=== PATIENT | male | born 1940 | race Caucasian/White ===

== ENCOUNTER 2020-03-21 10:16 | Inpatient (IN) | payer MEDICARE, BC ==
[~2020-03-21] VITALS: Ht 175.3 cm; Wt 73.5 kg
[2020-03-21] VITALS (303 sets, daily range): BP systolic 107–153; BP diastolic 63–97; PULSE 86–116; TEMP 97.8–98.2; O2SAT 78–100
[~2020-03-21 10:16] MED LIST: BONINE25 MG PO; FERATE27 MG PO; INDOCIN 25MG CA25 MG PO; NORMODYNE100 MG PO; OSTEO-BI-FLEX 21 TAB PO; PRESERVISION1 SGL PO; TYLENOL 325MG325 MG PO; ZESTRIL 20MG TA20 MG PO; ZITHROMAX Z PA250 MG PO
[2020-03-21 10:59] LABS: BASO # 0.1 (0.0-0.2); BASO % 0.7 % (0.0-2.0); EOS # 0.1 (0.0-0.7); EOS % 1.1 % (0-4.0); GRAN # 7.2 (1.4-6.5); GRAN % 77.5 % (42.2-75.2); HEMATOCRIT 41.4 % (42.0-52.0); HEMOGLOBIN 13.5 g/dl (13.5-18.0); LYMPH # 1.3 (1.2-3.4); LYMPH % 13.5 % (20.0-51.0); MEAN CELL VOLUME 91 fl (80.0-100.0); MEAN CORPUSCULAR HEMOGLOBIN 30 pg (27.0-31.0); MEAN CORPUSCULAR HGB CONC 33 g/dl (33.0-37.0); MEAN PLATELET VOLUME 10.7 fl (7.4-10.4); MONO # 0.6 (0.1-0.6); MONO % 6.9 % (1.7-9.3); PLATELET COUNT 214 K/mm3 (130-400); RED BLOOD COUNT 4.55 M/mm3 (4.20-5.60); REDCELL DISTRIBUTION WIDTH-CV 13.9 % (11.5-14.5)
[2020-03-21 11:02] LABS: INR 1.2 (0.8-3.0)
[2020-03-21 11:11] LABS: ALANINE AMINOTRANSFERASE 11 U/L (4-49); ALBUMIN 4.4 gm/dL (3.5-5.0); ALKALINE PHOSPHATASE 59 U/L (50-136); ANION GAP 11 mmol/L (7-16); AST,SGOT 16 U/L (15-37); BILIRUBIN,TOTAL 1.4 mg/dL (0.0-1.0); BLOOD UREA NITROGEN 16 mg/dL (9-20); C-REACTIVE PROTEIN 1.1 mg/dL (0.0-0.9); CALCIUM 9.7 mg/dL (8.4-10.2); CARBON DIOXIDE 21 mmol/L (22-30); CHLORIDE 105 mmol/L (98-107); CREATININE, serum 1.39 (0.66-1.25); GLUCOSE 100 mg/dL (74-106); LIPASE 205 U/L (23-300); POTASSIUM 3.8 mmol/L (3.4-5.0); SODIUM 137 mmol/L (137-145); TOTAL PROTEIN 7.6 gm/dL (6.4-8.2)
[2020-03-21 11:20] LABS: TROPONIN-I < 0.012 ng/mL (0.000-0.035)
--- NOTE | 2020-03-21 14:11 | NUR ---
Admission assessment completed, alert/oriented, he is hypetensive and tachycardic, A.fib on tele with rate 110-120, afebrile and denies feeling ill or being in contact with anyone who has been sick, lungs CTA/ no resp.difficulty, has 2+ edema to BLE/ reports this is baseline for him, has some redness/excoriation to his penis and scrotum that he reportss has been there for a long time, patients clothing was soiled and hygiene very poor upon arrival, he lives at home alone, meds/allergies/pharmacy reviewed with patient, Hospitalist DANNY inthe room to evaluate at this time
--- NOTE | 2020-03-21 14:25 | NUR ---
Camp Head Counselor met with the patient to complete initial intake. The patient lives alone in [place] about 4 to 5 miles out of town. The patient has a walker he uses in the home. The patient reports he sits on the side of his tub to wash himself. The patient's PCP is Dr. Madrigal and patient receives medications from [facility]. He is not currently on any medications. He states he takes an aspirin for pain once in a while. The patient does not have advanced directives in the EMR but has two sons, Bette # [phone] and # [phone], respectively. The patient was brought to the ED by his friend, Nicholas Alas # [phone] after a visit to his PCP. See HNP. The patient had bowel incontinence and has a sore on his penis. He informed the nurse that he had not go to his PCP about but was taking care of it at home with baby powder. The patient does not have a way to do his laundry states he does not remember when the last time he did his laundry. Per nurse that patient's pants "could stand up on their own" they were so dirty. CHERYL contacted the patient's friend, Nicholas. Nicholas states he transports the patient to his doctors appointments. Nicholas states the patient drives to his mail box (.5 miles) and the [place] (1.5 miles). CHERYL contacted the patient's sons to provide and update. CHERYL contacted Dr. Madrigal's office nurse, left message CHERYL made an APS. Intake # [id number]
--- NOTE | 2020-03-21 14:46 | NUR ---
Initial visit; Patient thanked Sanitation Worker Cleaning Machinery for looking in on him and offering spiritual care and letting him know Sanitation Worker Cleaning Machinery's are available to pray with him all day and 'on-call' over night. Sanitation Worker Cleaning Machinery offered God's blessings today and will follow up while Vinnie is a patient here with us.
--- NOTE | 2020-03-21 15:30 | NUR ---
The patient's son, Tony provided his cell phone # [phone] to this SW. Will continue to follow.
[2020-03-21 16:44] LABS: COLLECTION METHOD CLEAN CATCH
[2020-03-21 16:53] LABS: MUCOUS Present /lpf; PH 5 (5-8); SQUAMOUS EPITHELIAL None Seen /hpf; URINE APPEARANCE Clear; URINE BACTERIA None Seen /hpf; URINE BILIRUBIN Negative (NEGATIVE); URINE BLOOD 1+ (NEGATIVE); URINE COLOR Yellow; URINE GLUCOSE Negative (NEGATIVE); URINE KETONE 1+ (NEGATIVE); URINE LEUKOCYTE ESTERASE Negative (NEGATIVE); URINE NITRATE Negative (NEGATIVE); URINE PROTEIN(semi-quant) Negative (NEGATIVE); URINE RBC 0-2 /hpf; URINE UROBILINOGEN Negative (NEGATIVE)
--- NOTE | 2020-03-21 20:00 | NUR ---
Patient resting quietly in bed. Assisted with use of urinal. Patient denies any pain or discomfort; vitals within normal limits. Will continue to monitor.
[2020-03-22] VITALS (323 sets, daily range): BP systolic 106–145; BP diastolic 64–82; PULSE 18–97; TEMP 97.7–98.3; O2SAT 85–100
[2020-03-22 06:43] LABS: BASO # 0.1 (0.0-0.2); BASO % 0.8 % (0.0-2.0); EOS # 0.2 (0.0-0.7); EOS % 2.4 % (0-4.0); GRAN # 5.3 (1.4-6.5); GRAN % 67.8 % (42.2-75.2); HEMATOCRIT 37.5 % (42.0-52.0); HEMOGLOBIN 12.4 g/dl (13.5-18.0); LYMPH # 1.6 (1.2-3.4); LYMPH % 20.4 % (20.0-51.0); MEAN CELL VOLUME 91 fl (80.0-100.0); MEAN CORPUSCULAR HEMOGLOBIN 30 pg (27.0-31.0); MEAN CORPUSCULAR HGB CONC 33 g/dl (33.0-37.0); MEAN PLATELET VOLUME 11.4 fl (7.4-10.4); MONO # 0.6 (0.1-0.6); MONO % 8.2 % (1.7-9.3); PLATELET COUNT 191 K/mm3 (130-400); RED BLOOD COUNT 4.12 M/mm3 (4.20-5.60)
[2020-03-22 06:54] LABS: CALCIUM 8.7 mg/dL (8.4-10.2); CREATININE, serum 1.12 (0.66-1.25); POTASSIUM 3.4 mmol/L (3.4-5.0)
[2020-03-22 07:04] LABS: TROPONIN-I 0.013 ng/mL (0.000-0.035)
--- NOTE | 2020-03-22 07:40 | NUR ---
Report givent to BLANCA Brower.
--- NOTE | 2020-03-22 09:52 | NUR ---
The patient's son, Blayne left a message for Marketing Effectiveness Manager to get update. SW attempted to contact Blayne, left message.
--- NOTE | 2020-03-22 10:10 | NUR ---
Timeout completed Lias performing EBER with anesthesia. 1035 Cardioverted with one synced shock at [address] plan to [address] on sotalol after rate increases above 60 1145 update given to Lisa re: HR maintaining 60s in SR
--- NOTE | 2020-03-22 15:30 | NUR ---
Report called to Lei oilfield plant and field operator unit placed, pt and son notified of room number. Pt to room 312 via WC acc by pts son and RN belongings transported with patient to room.
--- NOTE | 2020-03-22 18:39 | NUR ---
Pt up from the ICU this afternoon, oriented to room, needs met.
--- NOTE | 2020-03-22 21:30 | NUR ---
Assessment completed. Pt resting in bed, denies pain or other needs at this time. Generalized dry flaky skin noted over entire body, most noticeable on bilateral feet. 1+ edema BLE. Pt alert and oriented to person, situation, time. Disoriented to place, stating he was "at [place]." Lung sounds clear, heart rate and rhythm regular, bowel sounds active all quadrants. IV to right AC intact, 1/2 NS running at 75 ml/hr. Neuro check completed, PERRLA, hand wood heel finisher weak but equal, follows commands.
[2020-03-23 03:42] VITALS: BP 145/72; PULSE 77; TEMP 97.7
--- NOTE | 2020-03-23 05:10 | NUR ---
Pt has uneventful shift. Asleep in room throughout night without complaint. Fluids running. Neuro assessments WNL and without change aside from generalized weakness.
[2020-03-23 07:09] LABS: BASO # 0.1 (0.0-0.2); EOS # 0.2 (0.0-0.7); GRAN # 4.9 (1.4-6.5); HEMOGLOBIN 11.6 g/dl (13.5-18.0); LYMPH # 1.4 (1.2-3.4); LYMPH % 19.2 % (20.0-51.0); MEAN CELL VOLUME 92 fl (80.0-100.0); MEAN CORPUSCULAR HEMOGLOBIN 29 pg (27.0-31.0); MEAN CORPUSCULAR HGB CONC 32 g/dl (33.0-37.0); MEAN PLATELET VOLUME 11.2 fl (7.4-10.4); MONO # 0.7 (0.1-0.6); MONO % 9.4 % (1.7-9.3); PLATELET COUNT 178 K/mm3 (130-400); RED BLOOD COUNT 3.94 M/mm3 (4.20-5.60); REDCELL DISTRIBUTION WIDTH-CV 14.1 % (11.5-14.5)
[2020-03-23 07:11] LABS: HEMATOCRIT 36.1 % (42.0-52.0)
[2020-03-23 07:31] LABS: CALCIUM 8.8 mg/dL (8.4-10.2); CREATININE, serum 1.03 (0.66-1.25); POTASSIUM 3.9 mmol/L (3.4-5.0)
[2020-03-23 08:05] VITALS: BP 153/83; PULSE 84; TEMP 98.3
--- NOTE | 2020-03-23 09:46 | NUR ---
Pt sleeping upon entry, easily awakened, no C/O pain at this time, shift assessments complete, left Pt call light in reach, bed in lowest position, alarm on.
[2020-03-23 11:57] VITALS: BP 139/70; PULSE 37; TEMP 98
--- NOTE | 2020-03-23 16:33 | NUR ---
Grain Processor met with the patient and his son, Blayne. The patient is agreeable to [facility]HS but not post acute rehab. Grain Processor presented the Medicare.gov's list of TRANSPORT DRIVER. [facility] out of [place] was chosen. CHERYL faxed referral to Pam with [facility]. CHERYL contacted Pam to inform her of the referral. Will continue to monitor.
[2020-03-23 17:15] VITALS: BP 159/73; PULSE 72; TEMP 97.9
--- NOTE | 2020-03-23 17:57 | NUR ---
Pt resting in the room, family in the room with Pt, Pt has had no C/O pain today. Pt is stronger than yesterday and is able to ambulate the hallway and use the restroom with standby assistance, no other issues noted. VS have remained stable, COVID swab taken this morning and sent to lab for processing.
--- NOTE | 2020-03-23 18:10 | NUR ---
Pt resting in the room today, has had C/O pain today and was administered pain medication for relief, Pt in good spirits and talkative. No other issues noted durin today. VS have remained stable.
[2020-03-23 19:40] VITALS: BP 141/80; PULSE 71; TEMP 97.8
--- NOTE | 2020-03-23 22:05 | NUR ---
Pt assessment completed and documented. Pt resting in bed at this time. Pt alert and oriented to person, time and situation. Pt disoriented to place stating he does not know what building he is in, but knows he is in [place]. IVF infusing per orders to left ac IV. Pt denies pain. Pt denies any other needs. Call light within reach. Bed alarm on. Will continue to monitor.
[2020-03-23 23:34] VITALS: BP 166/88; PULSE 74; TEMP 97.5
[2020-03-24 03:28] VITALS: BP 147/78; PULSE 68; TEMP 97.4
--- NOTE | 2020-03-24 05:42 | NUR ---
Pt rested well overnight. No complaints of pain. IVF infusing per orders to right AC IV. Pt denies any needs at this time. Fall precautions in place. Bed alarm on. Call light within reach.
[2020-03-24 05:58] LABS: BASO # 0.1 (0.0-0.2); BASO % 0.6 % (0.0-2.0); EOS # 0.3 (0.0-0.7); EOS % 3.2 % (0-4.0); GRAN # 5.5 (1.4-6.5); HEMOGLOBIN 12.1 g/dl (13.5-18.0); LYMPH # 1.2 (1.2-3.4); MEAN CELL VOLUME 92 fl (80.0-100.0); MEAN CORPUSCULAR HEMOGLOBIN 30 pg (27.0-31.0); MEAN CORPUSCULAR HGB CONC 33 g/dl (33.0-37.0); MEAN PLATELET VOLUME 11.1 fl (7.4-10.4); MONO # 0.7 (0.1-0.6); MONO % 8.8 % (1.7-9.3); PLATELET COUNT 198 K/mm3 (130-400); RED BLOOD COUNT 4.03 M/mm3 (4.20-5.60)
[2020-03-24 06:10] LABS: HEMATOCRIT 36.9 % (42.0-52.0)
[2020-03-24 06:18] LABS: CALCIUM 8.7 mg/dL (8.4-10.2); CREATININE, serum 1.02 (0.66-1.25); MAGNESIUM 1.9 mg/dL (1.6-2.3); POTASSIUM 3.8 mmol/L (3.4-5.0)
[2020-03-24 07:13] VITALS: BP 159/78; PULSE 75; TEMP 97.5
--- NOTE | 2020-03-24 09:55 | NUR ---
Pt awake and sitting in the recliner upon entry, no C/O pain at this time, assisted Pt to bed, shift assessments complete, left Pt call light in reach, bed in lowest position.
[2020-03-24 11:05] VITALS: BP 146/85; PULSE 78; TEMP 97.7
[2020-03-24] MEDS ORDERED: BETAPACE 80MG80 MG PO (13:42)
[2020-03-24] MEDS ORDERED: ELIQUIS 5MG PO (13:42)
[2020-03-24] MEDS ORDERED: TYLENOL 325MG325 MG PO (13:42)
[2020-03-24] MEDS ORDERED: CLOTRIMAZOLE ANTIF1% TP (13:43)
[2020-03-24 13:52] VITALS: BP 146/85; PULSE 78; TEMP 97.7
[2020-03-24] MEDS ORDERED: NORVASC 5MG5 MG/TAB PO (14:16)
--- NOTE | 2020-03-24 15:31 | NUR ---
SW approached by nurse to see if patient could be transfered to SNF due to Dr. bowling. SW met with patient and son to discuss transfer and both agreed for patient to transition to [facility] due to reviewing information provided by CHERYL previously and choosing [facility]. SW contacted [facility], sent referral information. [facility] support representative stated the doucmentation was reviewed and patient is approved to come to facility today 03/24/20 at 3pm. CHERYL notified nurse Lei, patient and son. Nothing further.
--- NOTE | 2020-03-24 15:35 | NUR ---
Pt transferred to [facility], Transported by [facility] transportation department, Report called to [facility] nursing.
== END 2020-03-24 15:39 | DRG 309 ==
LOC: COL.ER 10:16 → ICU 11:17 → MEDICAL 03-22 16:31
PROVIDERS: Emergency Medicine; Nurse Practitioner; Physician Assistant; ADMIT Internal Medicine
PROC: 5A2204Z Restoration of Cardiac Rhythm, Single (ICD-10-PCS; principal; 2020-03-22)
DX: I48.19 Other persistent atrial fibrillation (principal); E44.0 Moderate protein-calorie malnutrition; N17.9 Acute kidney failure, unspecified; I10 Essential (primary) hypertension; N48.1 Balanitis; E78.5 Hyperlipidemia, unspecified; Z87.891 Personal history of nicotine dependence; Z68.22 Body mass index [BMI] 22.0-22.9, adult
CPT/HCPCS: 99223-AI; 99231-AI; 99233-AI; 99239; J1650; J2704; J7030

== ENCOUNTER 2021-07-20 01:02 | Inpatient (IN) | payer MEDICARE, BC ==
[~2021-07-20] VITALS: Ht 180.3 cm; Wt 74.3 kg
[~2021-07-20 01:02] MED LIST changes: +BETAPACE 80MG80 MG PO; +CLOTRIMAZOLE ANTIF1% TP; +CORDARONE200 MG/TAB PO; +DEBROX OT; +ELIQUIS 5MG PO; +KLOR-CON SPRIN10 MEQ PO; +LASIX 40MG TABL40 MG PO; +NORVASC 5MG5 MG/TAB PO
[2021-07-20 02:52] LABS: BASO # 0.1 K/mm3 (0.0-0.2); BASO % 0.5 % (0.0-2.0); EOS # 0.1 K/mm3 (0.0-0.7); EOS % 0.5 % (0.0-4.0); GRAN # 7.9 K/mm3 (1.4-6.5); GRAN % 77.5 % (42.2-75.2); HEMOGLOBIN 10.8 g/dl (13.5-18.0); LYMPH # 1.2 K/mm3 (1.2-3.4); LYMPH % 11.4 % (20.0-51.0); MEAN CELL VOLUME 91 fl (80.0-100.0); MEAN CORPUSCULAR HEMOGLOBIN 31 pg (27-31); MEAN CORPUSCULAR HGB CONC 34 g/dl (33.0-37.0); MEAN PLATELET VOLUME 10.5 fl (7.4-10.4); MONO % 9.5 % (1.7-9.3); PLATELET COUNT 212 K/mm3 (130-400); RED BLOOD COUNT 3.51 M/mm3 (4.20-5.60)
[2021-07-20 03:02] LABS: INR 1.4 (0.8-3.0); PROTHROMBIN TIME 15.2 SECONDS (9.7-12.8)
[2021-07-20 03:09] LABS: ALBUMIN 3.9 gm/dL (3.4-4.8); BILIRUBIN,TOTAL 1.3 mg/dL (0.2-1.2); CALCIUM 9.9 mg/dL (8.4-10.2); CREATININE, serum 1.5 mg/dL (0.72-1.25); TOTAL PROTEIN 6.6 gm/dL (6.2-8.1)
--- NOTE | 2021-07-20 04:45 | NUR ---
PT ARRIVED AT 0415 BY CART. TRANSFERRED WITH SLIDE BOARD AND ASSIST OF 3. PT CONFUSED. ALERT TO NAME AND . CULP PLACED. PRN MORPHINE GIVEN FOR PAIN. CALL LIGHT WITHIN REACH. BED ALARM ON.
[2021-07-20] MEDS ORDERED: CORDARONE200 MG/TAB PO (05:00)
[2021-07-20] MEDS ORDERED: MIRALAX PA17 GM/Dose PO (05:05)
[2021-07-20] MEDS ORDERED: NORVASC 5MG5 MG/TAB PO (05:05)
[2021-07-20] MEDS ORDERED: ELIQUIS 2.5 PO (05:05)
[2021-07-20] MEDS ORDERED: ATHLETE'S FOOT1% TP (05:05)
[2021-07-20] MEDS ORDERED: B-12 500 MCG PO (05:06)
[2021-07-20 07:19] LABS: INR 1.4 (0.8-3.0); PROTHROMBIN TIME 15.2 SECONDS (9.7-12.8)
--- NOTE | 2021-07-20 07:24 | NUR ---
PT TAKING GOWN OFF, PULLED IV OUT, AND PULLING AT CULP. REORIEINTED, IV RESTARTED IN RIGHT FOREARM. PT WAS GOING TO BE MOVED CLOSER TO DESK, BUT FELL ASLEEP. PASSED THIS INFORMATION TO EBONY RIOS.
--- NOTE | 2021-07-20 07:47 | NUR ---
BEDSIDE PEPORT RECIEVED FROM NIYA RIOS PT CURRENTLY RESTING BED BEDALARM IN PLACE. CALL LIGHT WITHIN [facility]
[2021-07-20 07:55] VITALS: BP 152/58; PULSE 72; TEMP 98.3
[2021-07-20 08:21] LABS: BASO % 0.3 % (0.0-2.0); GRAN # 11.3 K/mm3 (1.4-6.5); GRAN % 83.5 % (42.2-75.2); HEMOGLOBIN 11.7 g/dl (13.5-18.0); LYMPH # 0.9 K/mm3 (1.2-3.4); LYMPH % 6.7 % (20.0-51.0); MEAN CELL VOLUME 92 fl (80.0-100.0); MEAN CORPUSCULAR HEMOGLOBIN 32 pg (27-31); MEAN CORPUSCULAR HGB CONC 35 g/dl (33.0-37.0); MEAN PLATELET VOLUME 11.4 fl (7.4-10.4); MONO # 1.2 K/mm3 (0.1-0.6); MONO % 9.1 % (1.7-9.3); PLATELET COUNT 220 K/mm3 (130-400); RED BLOOD COUNT 3.69 M/mm3 (4.20-5.60); REDCELL DISTRIBUTION WIDTH-CV 13.7 % (11.5-14.5)
[2021-07-20 08:23] LABS: HEMATOCRIT 33.9 % (42.0-52.0)
[2021-07-20 11:43] VITALS: BP 135/57; PULSE 71; TEMP 98.3
--- NOTE | 2021-07-20 14:15 | NUR ---
Attempted to meet with patient and was unsuccessful.
[2021-07-20 16:21] VITALS: BP 178/51; PULSE 76; TEMP 97.9
[2021-07-20 19:41] VITALS: BP 153/56; PULSE 75; TEMP 99.9
[2021-07-21] VITALS (7 sets, daily range): BP systolic 139–157; BP diastolic 53–65; PULSE 65–88; TEMP 97.2–99.3
--- NOTE | 2021-07-21 04:44 | NUR ---
PT SLEEPING IN BED @ THIS TIME. PT HAS CONTINUED TO BE INTERMITTENTLY CONFUSED TO TIME ET PLACE THROUGHOUT NIGHT, SPEECH IS SOMETIMES DIFFICULT TO UNDERSTAND ET PT IS [place]. PT HAS HAD SOME PAIN BUT MOSTLY SLEPT, GROANS WHEN BEING REPOSITIONED IN BED, HAS BEEN OFFERED DRINKS OF WATER WHEN AWAKE. PT HAD STATED THAT HE WAS NAUSEOUS FOR A BRIEF TIME ET THEN WENT BACK TO SLEEP. ICE PACK WAS PLACED ON RIGHT HIP. SCDs ON BILATERAL LEGS. IVF INFUSING. CULP CATHETER DRAINING DEPENDENTLY. BED ALARM ON, CALL LIGHT WITHIN REACH.
[2021-07-21 07:57] LABS: INR 1.3 (0.8-3.0); PROTHROMBIN TIME 14.2 SECONDS (9.7-12.8)
[2021-07-21 08:03] LABS: CALCIUM 8.6 mg/dL (8.4-10.2); CREATININE, serum 1.28 mg/dL (0.72-1.25); POTASSIUM 3.8 mmol/L (3.5-4.5)
[2021-07-21 08:49] LABS: BASO % 0.2 % (0.0-2.0); EOS % 0.2 % (0.0-4.0); GRAN % 78.3 % (42.2-75.2); HEMATOCRIT 28.6 % (42.0-52.0); LYMPH % 9.5 % (20.0-51.0); MEAN CELL VOLUME 94 fl (80.0-100.0); MEAN CORPUSCULAR HEMOGLOBIN 32 pg (27-31); MEAN CORPUSCULAR HGB CONC 34 g/dl (33.0-37.0); MEAN PLATELET VOLUME 11.2 fl (7.4-10.4); MONO # 1.2 K/mm3 (0.1-0.6); MONO % 11.5 % (1.7-9.3); PLATELET COUNT 167 K/mm3 (130-400); RED BLOOD COUNT 3.04 M/mm3 (4.20-5.60); REDCELL DISTRIBUTION WIDTH-CV 14.3 % (11.5-14.5)
[2021-07-21 08:51] LABS: HEMOGLOBIN 9.6 g/dl (13.5-18.0)
--- NOTE | 2021-07-21 10:30 | NUR ---
Patient alert with occasional confusion noted. See assessment. RLE shortened and externally rotated, pillow between legs for support. Pulses palpable to BLE. RLE with no numbness or tingling. +1 edema to RLE. ADILSON hose placed to LLE, SCDs placed bilaterally. Fuller catheter in place, patent, draining clear yellow urine. NWB to RLE, bedrest. No c/o at this time.
[2021-07-22] VITALS (13 sets, daily range): BP systolic 102–165; BP diastolic 53–81; PULSE 73–127; TEMP 97.5–99.6
--- NOTE | 2021-07-22 02:12 | NUR ---
PT SLEEPING IN BED. RESPIRATIONS UNLABORED. BED ALARM ON. CALL LIGHT WITHIN REACH. PT HAS BEEN ASLEEP FOR MOST OF NIGHT, HAS CALLED OUT X1 TO STATE HELP ET THAT HE NEEDED TO USE THE BR. PT RE-ORIENTED TO SITUATION ET CULP CATHETER. PT VERBALIZED UNDERSTANDING ET HAS BEEN QUIET SINCE. PT DENIES PAIN WHEN ASKED. CULP CATHETER IN PLACE DRAINING CLEAR YELLOW. IVF INFUSING. PT IS NOW NPO BUT PREVIOUSLY HAD SLEPT THROUGH DINNER ALSO ET HAS NOT EATEN.
--- NOTE | 2021-07-22 06:37 | NUR ---
MULTIPLE ATTEMPTS MADE TO CALL ET CONTACT PT'S SON FOR SURGICAL CONSENT WITH NO ANSWER, VOICE MESSAGE LEFT.
--- NOTE | 2021-07-22 07:19 | NUR ---
Patient to surgery with surgical staff at this time. Verbal consent given by patient with two witnesses. Fuller catheter care, partial bath and linen change completed prior to leaving unit.
--- NOTE | 2021-07-22 09:40 | NUR ---
Patient returns post op at 0925. Post op checks initiated. Assessment unchanged except incisions x3 to right hip CDI, pulses palpable to RLE. No c/o at this time
[2021-07-22 12:06] LABS: BASO % 0.2 % (0.0-2.0); EOS % 0.2 % (0.0-4.0); GRAN # 10.2 K/mm3 (1.4-6.5); GRAN % 87.8 % (42.2-75.2); LYMPH # 0.4 K/mm3 (1.2-3.4); LYMPH % 3.5 % (20.0-51.0); MEAN CELL VOLUME 94 fl (80.0-100.0); MEAN CORPUSCULAR HGB CONC 34 g/dl (33.0-37.0); MEAN PLATELET VOLUME 10.3 fl (7.4-10.4); MONO # 0.9 K/mm3 (0.1-0.6); MONO % 7.5 % (1.7-9.3); PLATELET COUNT 149 K/mm3 (130-400); RED BLOOD COUNT 3.03 M/mm3 (4.20-5.60)
[2021-07-22 12:17] LABS: CALCIUM 8.4 mg/dL (8.4-10.2); CREATININE, serum 1.09 mg/dL (0.72-1.25); POTASSIUM 3.8 mmol/L (3.5-4.5)
[2021-07-22 12:18] LABS: HEMATOCRIT 28.4 % (42.0-52.0); HEMOGLOBIN 9.5 g/dl (13.5-18.0); MEAN CORPUSCULAR HEMOGLOBIN 31 pg (27-31)
--- NOTE | 2021-07-22 15:36 | NUR ---
Rhythm changed from Sinus rate 70s to AVIB RVR rate 134. Nurse Notified.
--- NOTE | 2021-07-22 16:02 | NUR ---
Rhythm change. Sinus Rhytm rate 70s to AFIB RVR 130S
--- NOTE | 2021-07-22 16:14 | NUR ---
Due to patient's mental status and just getting back from surgery, phone call was made to the patient's son Tony. Eliazar reports that the patient has been living at [facility] in [place]. States he is mostly independent with his activities of daily living but that his father does get some help with showering. Reports that the patient utilizes a walker to assist with ambulation. States he has no oxygen needs. PCP is Dr. Madrigal and he utilizes [facility] for perscriptions with no cost difficulty. Son reports that he is pretty sure his father hasa DPOA-HC established and that he is listed as the agent. Spoke at length about his father needing SNF care post discharge. Talked about the options in facilities to which [facility] would be the first choice and [facility] as a second choice. Tony would like for his father to stay in the [facility]. Informed Tony that his father would be here for 3 midnights before a transfer and spoke about the visting policies at each facility. Referral faxed to Gena at [facility] SNF. Discharge plan: SNF- 1.[facility] 2.[facility]
--- NOTE | 2021-07-22 16:24 | NUR ---
Received phone call from tele monitor approx 1605 that patient converted into A-fib approx 1536. MORGAN Ferguson notified. Heart rate 90s at this time.
--- NOTE | 2021-07-22 16:25 | NUR ---
Patient having difficulty swallowing thin liquids at this time. Medications given in small amount of applesauce, able to swallow these. Patient had incontinent bowel movement, cleaned. Pain medication given.
[2021-07-23 04:28] VITALS: BP 150/61; PULSE 87; TEMP 98.1
[2021-07-23 06:59] LABS: BASO % 0.2 % (0.0-2.0); EOS % 0.1 % (0.0-4.0); GRAN # 8.1 K/mm3 (1.4-6.5); GRAN % 84.7 % (42.2-75.2); LYMPH # 0.5 K/mm3 (1.2-3.4); LYMPH % 4.7 % (20.0-51.0); MEAN CELL VOLUME 94 fl (80.0-100.0); MEAN CORPUSCULAR HGB CONC 33 g/dl (33.0-37.0); MEAN PLATELET VOLUME 11.1 fl (7.4-10.4); MONO # 0.9 K/mm3 (0.1-0.6); MONO % 9.9 % (1.7-9.3); PLATELET COUNT 146 K/mm3 (130-400); REDCELL DISTRIBUTION WIDTH-CV 13.9 % (11.5-14.5)
[2021-07-23 07:13] LABS: HEMATOCRIT 25.5 % (42.0-52.0); HEMOGLOBIN 8.5 g/dl (13.5-18.0); MEAN CORPUSCULAR HEMOGLOBIN 31 pg (27-31)
[2021-07-23 07:21] LABS: CALCIUM 8.2 mg/dL (8.4-10.2); CREATININE, serum 1.24 mg/dL (0.72-1.25); POTASSIUM 3.5 mmol/L (3.5-4.5)
--- NOTE | 2021-07-23 07:28 | NUR ---
pain controlled with morphine x3 this shift, pt placed on 2L O2 @0425 for sats <90%, IVF infusing per piv @75 cc/hr, po meds held this shift d/t difficulty swallowing, mouth swabs used to help with dry mouth and oral care. speech consult ordered this am.
--- NOTE | 2021-07-23 07:30 | NUR ---
CLOTH PIECER REPORTED THEY WERE UNABLE TO GIVE ORAL MEDS SAFELY PATIENT SEEMED TO COUGH A LOT WITH ORAL INTAKE. BREAKFAST TRAY AT BEDSIDE AND PCT REPORTING THE SAME ISSUE. ST CONSULTED. NURSING WAS ABLE TO CRUSH AM MEDS AND GIVE THEM IN APPLESAUCE WITH HOB AT NEARLY 90 DEGREES. PATIENT TOLERATED MEDS THIS WAY WITHOUT ANY ISSUES. HOWEVER, PATIENT WAS STILL COUGHIN WITH LIQUIDS AND SOFT BREAKFAST ITEMS. PATIENT NPO TILL SEEN BY .
[2021-07-23 08:00] VITALS: BP 158/53; PULSE 68; TEMP 98.2
--- NOTE | 2021-07-23 08:00 | NUR ---
PATIENT IS ANSWERING PT/OT QUESTIONS APPROPRIATELY AND SEEMS ORIENTED. PATIENT IS OCCATIONALLY DROWSY. WHEN ASSISTED TO DO ANY ACTIVITY PATIENT SCREAMS OUT IN PAIN. GAVE PRN PAIN MED WITH CRUSHED PILLS AND PATIENT TOLERATED WELL. PATIENT WAS 2 MAX ASSIST TO BEDSIDE CHAIR AND DID NOT FOLLOW VERBAL QUES WELL. RIGHT HIP DRESSINGS ARE CD&I WITH GAUZE. TEDS TO BLE. SCD'S CURRENTLY OFF. POSITIVE PEDAL PULSES TO BLE. CULP TO DD WITH MOD AMOUNTS OF CLEAR YELLOW URINE NOTED. IV FLUIDS INFUSING VIA PUMP INTO RIGHT FORARM IV PER ORDERS. VSS WITH TELE INPLACE. HEAD TO TOE ASSESSMENT COMPLETE. DNR STATUS. NO OTHER NEEDS AT THIS TIME. FALL RISK PRECAUTIONS INPLACE. CALL LIGHT IN REACH.
--- NOTE | 2021-07-23 11:00 | NUR ---
ST AT BEDSIDE TO EVAL & TREAT. PATIENT UNABLE TO PROPERLY FOLLOW DIRECTION, ST RECOMMENDING NPO
--- NOTE | 2021-07-23 11:33 | NUR ---
CHERYL contacted and faxed updates to Gena at [facility]. Awaiting screen.
[2021-07-23 12:00] VITALS: BP 155/78; PULSE 111; TEMP 97.9
--- NOTE | 2021-07-23 14:37 | NUR ---
Gena, at [facility], reports that they would like to see how the patient does with ST. Awaiting ST eval. Gena also inquired about a DPOA-HC. CHERYL contacted and updated Jory TREVINO of the patient's plan. The carding doubler reports that they do have the patient's DPOA-HC and faxed it to the surgical unit. CHERYL received the document and placed it in the patient's chart. The patient's DPOA-HC is his son, Tony.
--- NOTE | 2021-07-23 14:45 | NUR ---
PATIENT SLEEPING SOUNDLY, NO NEEDS.
[2021-07-23 16:00] VITALS: BP 142/96; PULSE 104; TEMP 97.9
[2021-07-23 20:01] VITALS: BP 147/59; PULSE 77; TEMP 98.5
[2021-07-24] VITALS (7 sets, daily range): BP systolic 119–153; BP diastolic 48–75; PULSE 65–101; TEMP 97.8–98.4
[2021-07-24 06:10] LABS: BASO % 0.4 % (0.0-2.0); EOS # 0.3 K/mm3 (0.0-0.7); EOS % 3.2 % (0.0-4.0); GRAN % 76.4 % (42.2-75.2); LYMPH # 0.8 K/mm3 (1.2-3.4); LYMPH % 10.2 % (20.0-51.0); MEAN CELL VOLUME 92 fl (80.0-100.0); MEAN CORPUSCULAR HGB CONC 34 g/dl (33.0-37.0); MEAN PLATELET VOLUME 10.6 fl (7.4-10.4); MONO # 0.7 K/mm3 (0.1-0.6); MONO % 9.2 % (1.7-9.3); PLATELET COUNT 172 K/mm3 (130-400); RED BLOOD COUNT 2.56 M/mm3 (4.20-5.60); REDCELL DISTRIBUTION WIDTH-CV 13.7 % (11.5-14.5)
[2021-07-24 06:11] LABS: CALCIUM 8.3 mg/dL (8.4-10.2); CREATININE, serum 1.13 mg/dL (0.72-1.25); POTASSIUM 3.5 mmol/L (3.5-4.5)
--- NOTE | 2021-07-24 06:16 | NUR ---
Patient crying out in pain this am, ice pack in place, medicated per MAR for pain, reoriented to situation and place and time, updated family on patient condition, telemetry in use, call plasencia w/i reach, mayen draining per gravity, no acute distress noted.
[2021-07-24 06:24] LABS: HEMATOCRIT 23.5 % (42.0-52.0); MEAN CORPUSCULAR HEMOGLOBIN 31 pg (27-31)
--- NOTE | 2021-07-24 08:00 | NUR ---
PATIENT IS ANSWERING QUESTIONS APPROPRIATELY, ORIENTED X2. PATIENT IS OCCATIONALLY DROWSY & FORGETFUL. PATIENT C/O PAIN IN RLE. GAVE PRN PAIN MEDS WITH AM PILLS, CRUSHED IN APPLESAUCE AND TOLERATED WELL. WHEN ASSISTED TO DO ANY ACTIVITY PATIENT IS A 2 MAX ASSIST TO BEDSIDE CHAIR AND DOES NOT FOLLOW VERBAL QUES WELL. RIGHT HIP DRESSINGS ARE CD&I WITH GAUZE. TEDS TO BLE. SCD'S CURRENTLY OFF. POSITIVE PEDAL PULSES TO BLE. CULP TO DD WITH MOD AMOUNTS OF CLEAR YELLOW URINE NOTED. IV FLUIDS INFUSING VIA PUMP INTO RIGHT FORARM IV PER ORDERS. VSS WITH TELE INPLACE. HEAD TO TOE ASSESSMENT COMPLETE. DNR STATUS. NO OTHER NEEDS AT THIS TIME. FALL RISK PRECAUTIONS INPLACE. CALL LIGHT IN REACH.
--- NOTE | 2021-07-24 10:11 | NUR ---
Gena, at [facility], reports that they are good to accept the patient. SW to fax updates to [facility] and will continue to follow.
--- NOTE | 2021-07-24 15:14 | NUR ---
ST reassessed the patient today and recommend a pureed diet and nectar thick liquids. CHERYL notified Gena at [facility]. Gena reports that since the patient has been NPO until ST reassessed, they would like to see how the patient does on the new diet. Possible dc tomorrow. CHERYL updated the PA.
--- NOTE | 2021-07-24 16:10 | NUR ---
PATIENT IS UNABLE TO VOID AFTER HAVING CULP DC'D. BLADDER SCAN ONLY SHOWED 135CC. PATIENT DENIES URGE TO VOID. BRIEF INPLACE. WILL CONTINUE TO MONITOR.
--- NOTE | 2021-07-24 20:00 | NUR ---
PT REPEATEDLY YELLS OUT FOR HELP. WHEN PT IS ASKED WHAT HE NEEDS, PT STATES THAT HE NEEDS TO GO TO THE BR. SMALL AMOUNT OF URINE NOTED ON PT'S GOWN. LINENS ET BRIEF UNDERNEATH PT ARE DRY. PT ASSISTED TO USE URINAL ET VOIDS VERY SMALL AMOUNT. PT THEN REPEATEDLY STATES TO HELP HIM ET THAT HE NEEDS MONEY, REMOVES TELEMETRY PATCHES FROM CHEST. PT IS CONFUSED TO PLACE ET SITUATION. PT STATES THAT THE YEAR IS 1939 WHEN ASKED. ATTEMPTS MADE TO RE-ORIENT PT WITH NO SUCCESS. TELEMETRY PATCHES REPLACED, IVF INFUSING INTO RIGHT FOREARM. RESPIRATIONS UNLABORED ON 1L O2. BED ALARM ON. CALL LIGHT WITHIN REACH.
--- NOTE | 2021-07-24 20:30 | NUR ---
PT CONTINUES TO YELL OUT, ASKING FOR SOMEONE TO GIVE HIM SOME MONEY, THEN STATES THAT HE NEEDS TO USE THE BR. PT ASSISTED TO USE URINAL, VOIDS 125 ML KATI URINE. PT ASSISTED TO DRINK THICKENED FLUIDS WITH HOB ELEVATED TO SITTING POSITION, MEDICATIONS GIVEN CRUSHED IN PUDDING. PT IS NOTED TO OCCASIONALLY COUGH WITH INTAKE.
[2021-07-25] VITALS (7 sets, daily range): BP systolic 115–159; BP diastolic 38–66; PULSE 74–102; TEMP 97.9–99.2
[2021-07-25 06:24] LABS: BASO % 0.2 % (0.0-2.0); EOS # 0.2 K/mm3 (0.0-0.7); EOS % 2.2 % (0.0-4.0); GRAN # 6.7 K/mm3 (1.4-6.5); GRAN % 81.4 % (42.2-75.2); LYMPH # 0.8 K/mm3 (1.2-3.4); LYMPH % 10.1 % (20.0-51.0); MEAN CELL VOLUME 91 fl (80.0-100.0); MEAN CORPUSCULAR HGB CONC 34 g/dl (33.0-37.0); MEAN PLATELET VOLUME 10.2 fl (7.4-10.4); MONO # 0.5 K/mm3 (0.1-0.6); MONO % 5.6 % (1.7-9.3); PLATELET COUNT 197 K/mm3 (130-400); RED BLOOD COUNT 2.54 M/mm3 (4.20-5.60); REDCELL DISTRIBUTION WIDTH-CV 13.5 % (11.5-14.5)
--- NOTE | 2021-07-25 06:27 | NUR ---
PT REPEATEDLY STATES HELP ME ET THAT HE NEEDS TO USE THE BR. PT IS BLADDER SCANNED, RESULTS ARE 261 ML. PT IS ASSISTED TO USE URINAL, VOIDS 50 ML DARK KATI CLOUDY URINE. SRINATH DELGADO CALLED ET NOTIFIED OF PT'S LACK OF OUTPUT ET URGE TO URINATE. NEW ORDER RECEIVED. PT IS STRAIGHT CATHED X1 USING STERILE TECHNIQUE, PCT KENNY ASSISTING IN ROOM, PANCHO CARE COMPLETED BEFORE ET AFTER PROCEDURE. PT HAS 250 ML DARK KATI CLOUDY URINE OUT WITH SOME SEDIMENT. SRINATH DELGADO NOTIFIED. IVF RATE OF INFUSION INCREASED TO 150 ML/HR @ THIS TIME. PT RESTING QUIETLY IN BED WHEN UNDISTURBED. RESPIRATIONS UNLABORED. BED ALARM ON. CALL LIGHT WITHIN REACH.
[2021-07-25 06:34] LABS: HEMOGLOBIN 7.9 g/dl (13.5-18.0); MEAN CORPUSCULAR HEMOGLOBIN 31 pg (27-31)
[2021-07-25 06:37] LABS: CALCIUM 8.4 mg/dL (8.4-10.2); CREATININE, serum 1.08 mg/dL (0.72-1.25); POTASSIUM 3.6 mmol/L (3.5-4.5)
--- NOTE | 2021-07-25 07:15 | NUR ---
BEDSIDE REPORT RECEIVED FROM LEATHA RIOS PT ANETA SLEEPING IVF INFUISING. CALL LIGHT WITHIN REACH.
--- NOTE | 2021-07-25 14:10 | NUR ---
CHERYL faxed updates to Gena at [facility]. The patient received increased IV fluids this morning. Gena reports that they would want the patient stable off of the IV fluids and for the patient to have better pain control. If the patient is doing better tomorrow and stable off the IV fluids, then they can look at taking him. CHERYL notified the clinical team. CHERYL contacted and updated the patient's son, Tony. Tony is in agreement to the plan. CHERYL read the IM form outloud to Tony over the phone. Tony verbalized understanding and gave SW approval to sign the form on his behalf. *Discharge plan [facility]*
--- NOTE | 2021-07-25 22:00 | NUR ---
PT'S SON MAKSIM CALLS ET IS UPDATED ON PT CONDITION. PT'S SON STATES THAT HE WOULD LIKE PT'S VITAMIN B12 LEVELS CHECKED ET THAT HE BELIEVES A SUPPLEMENT MAY HELP PT. THIS NURSE TELLS MAKSIM THAT INFORMATION WILL BE PASSED ON TO PROVIDER ET DAY SHIFT.
[2021-07-26] VITALS (7 sets, daily range): BP systolic 104–151; BP diastolic 47–78; PULSE 66–110; TEMP 97.7–98.3
--- NOTE | 2021-07-26 01:57 | NUR ---
FARM ASSISTANT REPORTS THAT PT HAS CONVERTED INTO SINUS RHYTHM @ THIS TIME.
--- NOTE | 2021-07-26 06:36 | NUR ---
LAB ASSISTED TO DRAW BLOOD. PT IS DROWSY ET APPEARS PALE, IS COOPERATIVE WITH LAB DRAW. PT IS COUGHING A MOIST COUGH INTERMITTENTLY. NO SPUTUM SEEN. PT REFUSES ORAL CARE. RESPIRATIONS UNLABORED. BED ALARM ON. CALL LIGHT WITHIN REACH.
--- NOTE | 2021-07-26 07:10 | NUR ---
REPORT RECEIVED FROM LEATHA RIOS , PT RESTING IN BED MOURNS AT TIMES. CULP IN PLACE WITH MINIMUM OUTPUT. BED ALARM IN PLACE
[2021-07-26 07:18] LABS: BASO % 0.4 % (0.0-2.0); EOS # 0.2 K/mm3 (0.0-0.7); EOS % 2.9 % (0.0-4.0); GRAN # 5.8 K/mm3 (1.4-6.5); GRAN % 74.3 % (42.2-75.2); LYMPH # 1.2 K/mm3 (1.2-3.4); LYMPH % 14.6 % (20.0-51.0); MEAN CELL VOLUME 93 fl (80.0-100.0); MEAN CORPUSCULAR HGB CONC 33 g/dl (33.0-37.0); MEAN PLATELET VOLUME 10.2 fl (7.4-10.4); MONO # 0.6 K/mm3 (0.1-0.6); PLATELET COUNT 216 K/mm3 (130-400); RED BLOOD COUNT 2.33 M/mm3 (4.20-5.60); REDCELL DISTRIBUTION WIDTH-CV 13.8 % (11.5-14.5)
[2021-07-26 07:24] LABS: HEMATOCRIT 21.6 % (42.0-52.0); HEMOGLOBIN 7.2 g/dl (13.5-18.0); MEAN CORPUSCULAR HEMOGLOBIN 31 pg (27-31)
[2021-07-26 07:37] LABS: CALCIUM 8.3 mg/dL (8.4-10.2); CREATININE, serum 0.99 mg/dL (0.72-1.25); POTASSIUM 3.6 mmol/L (3.5-4.5)
--- NOTE | 2021-07-26 11:03 | NUR ---
CHERYL spoke with Tremayne this morning who requests clinical updates on the patient for a possible dc todya. Updates faxed to Tremayne and johan swab requested.
--- NOTE | 2021-07-26 11:30 | NUR ---
Tremayne from [facility] states that they are unable to take the patient today due to his "hemoglobin and IV fluids". House notifed.
--- NOTE | 2021-07-26 18:45 | NUR ---
PT REMAIN CONFUSED AT TIMES ASSISTED PT TO CHAIR WITH SIT AND STAND SIT. PT HAD A LARGE BM. CULP REMAIN INTACK. MINIMUN INTAKE NOTED. SON AND DAUGHTER CALLED, UPDATED ON CPOC. PT DAUGHTER CALLED AND REQUESTED A MACHINE BANDER AND CELLOPHANER HELPER CALLED PLACED TO [facility]. DR DONG CALLED SN ORDER OF B 12 SHOT PER SON REQUEST.
--- NOTE | 2021-07-26 19:12 | NUR ---
RECEIVED CHANGE OF SHIFT REPORT FROM DAY SHIFT RN.
--- NOTE | 2021-07-26 21:27 | NUR ---
PER TELE THAT PATIENT'S HR CHANGE "BACK INTO AFIB"
--- NOTE | 2021-07-27 01:45 | NUR ---
PER TELE, HEART RHYTHM CONVERTED TO SINUS RHYTHM.
--- NOTE | 2021-07-27 03:14 | NUR ---
TELE REPORTS PATIENT WENT BACK INTO AFIB.
--- NOTE | 2021-07-27 03:15 | NUR ---
PATIENT RESTING QUIETLY, RESPIRATIONS EVEN AND NONLABORED, SKIN DRY.
[2021-07-27 03:42] VITALS: BP 112/64; PULSE 80; TEMP 98
--- NOTE | 2021-07-27 04:40 | NUR ---
PER TELE REPORTS HEART RATE CONVERTED TO SINUS.
--- NOTE | 2021-07-27 05:31 | NUR ---
PER TELE REPORTS HEART RATE WENT INTO AFIB.
--- NOTE | 2021-07-27 06:44 | NUR ---
CHANGE OF SHIFT REPORT GIVEN TO DAY SHIFT RNMADELEINE.
[2021-07-27 07:01] LABS: BASO % 0.4 % (0.0-2.0); EOS # 0.2 K/mm3 (0.0-0.7); EOS % 3.1 % (0.0-4.0); GRAN # 5.1 K/mm3 (1.4-6.5); GRAN % 69.6 % (42.2-75.2); LYMPH # 1.3 K/mm3 (1.2-3.4); LYMPH % 17.8 % (20.0-51.0); MEAN CELL VOLUME 91 fl (80.0-100.0); MEAN CORPUSCULAR HGB CONC 34 g/dl (33.0-37.0); MONO # 0.6 K/mm3 (0.1-0.6); MONO % 8.2 % (1.7-9.3); PLATELET COUNT 263 K/mm3 (130-400); RED BLOOD COUNT 2.32 M/mm3 (4.20-5.60); REDCELL DISTRIBUTION WIDTH-CV 13.9 % (11.5-14.5)
[2021-07-27 07:22] VITALS: BP 116/60; PULSE 97; TEMP 98.3
[2021-07-27 07:24] LABS: HEMATOCRIT 21.2 % (42.0-52.0); HEMOGLOBIN 7.1 g/dl (13.5-18.0); MEAN CORPUSCULAR HEMOGLOBIN 31 pg (27-31)
[2021-07-27 07:29] LABS: CALCIUM 8.3 mg/dL (8.4-10.2); CREATININE, serum 0.93 mg/dL (0.72-1.25); POTASSIUM 3.8 mmol/L (3.5-4.5)
[2021-07-27 12:07] VITALS: BP 139/51; PULSE 71; TEMP 97.7
[2021-07-27 17:00] VITALS: BP 114/67; PULSE 66; TEMP 98
--- NOTE | 2021-07-27 18:44 | NUR ---
RECEIVED CHANGE OF SHIFT REPORT FROM DAY SHIFT RN.
[2021-07-27 19:06] VITALS: BP 142/57; PULSE 67; TEMP 98
[2021-07-27] MEDS ORDERED: DUO-KAPS1 CAP PO (23:20)
[2021-07-27] MEDS ORDERED: VITAMIN C500 MG PO (23:20)
[2021-07-27] MEDS ORDERED: NORCO 325 MG-51 TAB PO (23:22)
--- NOTE | 2021-07-28 00:30 | NUR ---
PATIENT SLEEPING, DID NOT WAKE FOR VS AT THIS TIME. BREATHING EVEN AND NONLABORED AND ON ROOM. INT IN PLACE WITH TELE IN PLACE. CULP TO DD, DRAINING DARK YELLOW URINE.
[2021-07-28 03:02] VITALS: BP 122/64; PULSE 66; TEMP 98
--- NOTE | 2021-07-28 05:00 | NUR ---
PATIENT TOO DROWSY TO GIVE SCHEDULED TYLENOL MED.
--- NOTE | 2021-07-28 07:00 | NUR ---
CHANGE OF SHIFT REPORT GIVEN TO DAY SHIFT RNLÁZARO.
[2021-07-28 07:25] VITALS: BP 153/60; PULSE 67; TEMP 98.8
--- NOTE | 2021-07-28 11:11 | NUR ---
Patient alert, confused. See assessment. Right hip with dressing CDI. Pulses palpable to RLE. FWB. ADILSON hose and SCDs in place. Patient requires assist for meals. Fuller catheter in place, draining clear yellow urine. No c/o at this time.
[2021-07-28 11:35] VITALS: BP 148/70; PULSE 66; TEMP 98
--- NOTE | 2021-07-28 12:04 | NUR ---
Dressing to RLE changed, gauze and tegaderm applied. Incisions to RLE with edges well approximated, no redness or drainage noted. Left hand skin tear dressing changed, telfa and tegaderm applied. Patient transfered to chair via sit to stand lift, tolerated well.
[2021-07-28 15:12] VITALS: BP 149/53; PULSE 64; TEMP 98.1
--- NOTE | 2021-07-28 16:23 | NUR ---
Rani spoke with Tremayne at [facility] and she informed Rani that pt can discharge 07/29 after doc to doc call tomorrow. Rani faxed updates.
--- NOTE | 2021-07-28 17:43 | NUR ---
Fuller catheter discontinued per Drs order, tolerated well.
--- NOTE | 2021-07-28 17:54 | NUR ---
Patient has refused meals today, however, has drank an entire Ensure with an ice cream mixed in for each meal.
[2021-07-28 19:18] VITALS: BP 129/60; PULSE 96; TEMP 97.8
[2021-07-28 23:54] VITALS: BP 140/59; PULSE 67; TEMP 98
[2021-07-29 03:35] VITALS: BP 124/62; PULSE 69; TEMP 98
--- NOTE | 2021-07-29 03:40 | NUR ---
PT HAS BEEN ASSISTED WITH THE URINAL X2 TONIGHT, VOIDING OK. IS ALERT AND ORIENTED X3. TAKING MEDS CRUSHED IN PUDDING OR APPLESAUCE. SL DC'D, WOULDN'T FLUSH. INCISIONS X3 TO RT LEG. REPOSITIONED Q2H.
[2021-07-29 08:00] VITALS: BP 129/59; PULSE 65; TEMP 97.8
[2021-07-29] MEDS ORDERED: FERRO-TIME325 MG PO (09:06)
[2021-07-29] MEDS ORDERED: FLOMAX 0.40.4 MG/CAP PO (09:06)
--- NOTE | 2021-07-29 09:21 | NUR ---
Clinical updates faxed to Gena at [facility]. Covid swab requesed. Awaiting clinical review for a transportation time.
[2021-07-29 11:43] VITALS: BP 105/67; PULSE 105; TEMP 97.6
--- NOTE | 2021-07-29 11:56 | NUR ---
Patient alert, intermittent confusion noted. See assessment. RLE hip incisions with edges well approximated, no redness or drainage noted, new gauze and tegaderm applied. Pulses palpable to BLE, sensation intact, no c/o numbness or tingling. FWB. Uses sit to stand for transfers. SCDs and TEDs in place. Oral intake encouraged, drinks Ensure and ice cream shake, refuses pureed meals. Voiding adequate amounts. No c/o at this time.
--- NOTE | 2021-07-29 11:59 | NUR ---
Patient up in chair, transfered to chair at approx 1000 per PT. Tolerating well.
[2021-07-29 13:39] VITALS: BP 105/67; PULSE 105; TEMP 97.6
--- NOTE | 2021-07-29 13:47 | NUR ---
Gena with [facility] states that they are able to accept the patient today. Patient's hgb was a concern for their staff but upon clinical review they agree to accept the patient without a hgb drawn today. Transportation time arranged for 1500 on 07/29. staff developer notified. Due to the patient's current mental status, phone call made to Tony, patient's son, and was read the [facility] IM Form aloud. Tony verbalizes his understanding and agrees to a verbal consent. [facility] IM Form signed and placed in the patient's chart. Discharge orders and covid swab faxed to Gena at [facility]. Discharge plan: [facility] @ 1500 07/29
--- NOTE | 2021-07-29 15:05 | NUR ---
Report called to Negra at [facility].
--- NOTE | 2021-07-29 16:14 | NUR ---
Patient transfered to [facility] via wheelchair/auto with transportation staff at 1600. Paperwork sent.
== END 2021-07-29 16:00 | DRG 481 ==
LOC: COL.ER 01:02 → SURG 03:08
PROVIDERS: Nurse Practitioner Family; Orthopaedic Surgery; Personal Emergency Response Attendant; Physician Assistant; ADMIT Internal Medicine
PROC: 0QH634Z Insertion of Internal Fixation Device into Right Upper Femur, Percutaneous Approach (ICD-10-PCS; principal; 2021-07-22 07:30)
DX: S72.141A Displaced intertrochanteric fracture of right femur, initial encounter for closed fracture (principal); E87.2 Acidosis; N17.9 Acute kidney failure, unspecified; J98.11 Atelectasis; I10 Essential (primary) hypertension; I48.91 Unspecified atrial fibrillation; F03.90 Unspecified dementia, unspecified severity, without behavioral disturbance, psychotic disturbance, mood disturbance, and anxiety; D64.9 Anemia, unspecified; R33.9 Retention of urine, unspecified; R13.10 Dysphagia, unspecified; Z20.822 Contact with and (suspected) exposure to COVID-19; Z66 Do not resuscitate; W18.30XA Fall on same level, unspecified, initial encounter; Y93.89 Activity, other specified; Y92.009 Unspecified place in unspecified non-institutional (private) residence as the place of occurrence of the external cause; Z87.891 Personal history of nicotine dependence; Z79.01 Long term (current) use of anticoagulants
CPT/HCPCS: 99223-AI; 99232-AI; 99233-AI; 99239; A4314; A9284; C1713; J0690; J2250; J2270; J2704; J2795; J3010; J3480